=== PATIENT | male | born 1945 | race Caucasian/White ===

== ENCOUNTER 2021-03-27 12:32 | Observation (INO) ==
[2021-03-27 14:54] LABS: Basophils # 0.1 10*3/uL (0.0-0.2); Basophils % 0.5 % (0.0-0.8); Eosinophils # 0.2 10*3/uL (0.0-0.87); Eosinophils % 1.9 % (0.00-10.9); Hematocrit 41.2 VOL% (42.0-52.0); Hemoglobin 14.6 GM/DL (14.0-18.0); Immature Granulocytes % 0.3 %; Immature Granulocytes Absolute 0.03 #; Lymphocytes # 3.7 10*3/uL (1.4-4.0); Lymphocytes % 39.4 % (21.2-54.2); Mean Corpuscular HGB Conc 35.4 GM/DL (32-36); Mean Corpuscular Volume 95.2 FL (87-102); Mean Platelet Volume 8.8 FL (9.6-12.0); Neutrophils % 52.9 % (38.7-73.9); Platelet Count 218 T/CUMM (130-400); Red Blood Count 4.33 MC/CUMM (3.8-5.5); White Blood Count 9.3 T/CUMM (4-12)
[2021-03-27 15:12] LABS: PT Patient Result 10.9 SECS (9.8-11.9); Partial Thromboplastin Time 30.1 SECS (23.9-33.8)
[2021-03-27 15:13] LABS: Alanine Aminotransferase < 6 U/L (16-61); Albumin 3.2 G/DL (3.4-5.0); Alkaline Phosphatase 113 U/L (45-117); Aspartate Amino Transferase 13 U/L (0-37); Blood Urea Nitrogen 15 MG/DL (7-18); Calcium 8.7 MG/DL (8.5-10.1); Carbon Dioxide 28 MMOL/L (21-32); Estimated Glom Filtration Rate 69 ML/MIN; Glucose 89 MG/DL (74-106); Osmolality,Calculated 280.3 MOS/KG (273-304); Sodium 141 MMOL/L (136-145); Total Protein 7.7 G/DL (6.4-8.2)
[2021-03-27] MEDS ORDERED: ACETAMINOPHEN 325 MG TABLET PO PRN (16:26)
[2021-03-27] MEDS ORDERED: ONDANSETRON 4 MG/2 ML VIAL IV PRN (16:26)
[2021-03-27] MEDS ORDERED: DEXTROSE 50% 25 GM/50 ML VIAL IV PRN (16:26)
[2021-03-27] MEDS ORDERED: GLUCAGON 1 MG VIAL IM PRN (16:26)
[2021-03-27] MEDS: SODIUM CHLORIDE 0.9% 1,000 ML IV SCH (18:15)
[2021-03-27] MEDS: ATORVASTATIN 40 MG TABLET PO SCH (20:49)
[2021-03-27] MEDS: levETIRAcetam 500 MG TABLET PO SCH (20:49)
[2021-03-27] MEDS: levETIRAcetam 250 MG TABLET PO SCH (20:49)
[2021-03-27] MEDS: ENTACAPONE 200 MG TABLET PO SCH (20:49)
[2021-03-27] MEDS: DONEPEZIL 10 MG TABLET PO SCH (20:49)
[2021-03-27] MEDS: LAMOTRIGINE 300 MG PO SCH (20:50)
[2021-03-27] MEDS: CARBIDOPA/LEVODOPA 25-100 MG TABLET PO SCH (20:50)
[2021-03-28 05:26] LABS: Basophils # 0.1 10*3/uL (0.0-0.2); Basophils % 0.6 % (0.0-0.8); Eosinophils # 0.2 10*3/uL (0.0-0.87); Eosinophils % 2.8 % (0.00-10.9); Hematocrit 40.6 VOL% (42.0-52.0); Hemoglobin 14.6 GM/DL (14.0-18.0); Immature Granulocytes % 0.4 %; Immature Granulocytes Absolute 0.03 #; Lymphocytes # 4.2 10*3/uL (1.4-4.0); Lymphocytes % 51.1 % (21.2-54.2); Mean Corpuscular Volume 94.4 FL (87-102); Mean Platelet Volume 8.9 FL (9.6-12.0); Monocytes % 6.1 % (1.7-12.7); Platelet Count 226 T/CUMM (130-400); Red Cell Distribution Width 11.9 % (9.3-17.3); White Blood Count 8.2 T/CUMM (4-12)
[2021-03-28 06:01] LABS: Calcium 8.8 MG/DL (8.5-10.1); Osmolality,Calculated 275.5 MOS/KG (273-304); Potassium 3.8 MMOL/L (3.5-5.1)
[2021-03-28] MEDS: levETIRAcetam 250 MG TABLET PO SCH ×2 (08:20→21:26)
[2021-03-28] MEDS: ASPIRIN 325 MG TABLET PO SCH (08:20)
[2021-03-28] MEDS: ENTACAPONE 200 MG TABLET PO SCH ×4 (08:20→21:24)
[2021-03-28] MEDS: CARBIDOPA/LEVODOPA 25-100 MG TABLET PO SCH ×4 (08:21→21:23)
[2021-03-28] MEDS: SERTRALINE 100 MG TABLET PO SCH (08:22)
[2021-03-28] MEDS: levETIRAcetam 500 MG TABLET PO SCH ×2 (08:22→21:26)
[2021-03-28] MEDS: LAMOTRIGINE 300 MG PO SCH ×2 (08:28→21:22)
[2021-03-28] MEDS ORDERED: MULTIVITAMIN (CENTRUM) TABLET PO SCH (12:00)
[2021-03-28] MEDS ORDERED: PANTOPRAZOLE 40 MG TABLET PO SCH (16:30)
[2021-03-28] MEDS: SODIUM CHLORIDE 0.9% 1,000 ML IV SCH (17:05)
[2021-03-28] MEDS: DONEPEZIL 10 MG TABLET PO SCH (21:23)
[2021-03-28] MEDS: ATORVASTATIN 40 MG TABLET PO SCH (21:24)
[2021-03-29 06:55] LABS: Basophils % 0.4 % (0.0-0.8); Eosinophils # 0.3 10*3/uL (0.0-0.87); Hematocrit 39.6 VOL% (42.0-52.0); Immature Granulocytes % 0.2 %; Immature Granulocytes Absolute 0.02 #; Lymphocytes # 4.4 10*3/uL (1.4-4.0); Lymphocytes % 48.4 % (21.2-54.2); Mean Corpuscular HGB Conc 35.4 GM/DL (32-36); Mean Corpuscular Volume 94.1 FL (87-102); Mean Platelet Volume 9.5 FL (9.6-12.0); Monocytes % 6.5 % (1.7-12.7); Neutrophils % 41.5 % (38.7-73.9); Platelet Count 224 T/CUMM (130-400); Red Blood Count 4.21 MC/CUMM (3.8-5.5); Red Cell Distribution Width 11.9 % (9.3-17.3)
[2021-03-29 07:26] LABS: Calcium 8.6 MG/DL (8.5-10.1); Osmolality,Calculated 275.7 MOS/KG (273-304); Potassium 3.7 MMOL/L (3.5-5.1)
[2021-03-29] MEDS: LAMOTRIGINE 300 MG PO SCH (08:25)
[2021-03-29] MEDS: levETIRAcetam 250 MG TABLET PO SCH (08:26)
[2021-03-29] MEDS: ASPIRIN 325 MG TABLET PO SCH (08:26)
[2021-03-29] MEDS: levETIRAcetam 500 MG TABLET PO SCH (08:26)
[2021-03-29] MEDS: ENTACAPONE 200 MG TABLET PO SCH (08:27)
[2021-03-29] MEDS: CARBIDOPA/LEVODOPA 25-100 MG TABLET PO SCH (08:27)
[2021-03-29] MEDS: SODIUM CHLORIDE 0.9% 1,000 ML IV SCH (08:32)
[2021-03-29 10:04] VITALS: BP 104/52
[2021-03-29] MEDS: SERTRALINE 100 MG TABLET PO SCH (10:54)
== END 2021-03-29 11:40 | disposition home health service (06) ==
LOC: N.ED 12:32 → N.EDINP 12:32 → N.5E 17:59
PROVIDERS: ADMIT Internal Medicine; ATTEND Internal Medicine